=== PATIENT | female | born 1995 | race Caucasian/White ===

== ENCOUNTER 2017-11-11 22:53 | Emergency (ER) | payer OTHER ==
[2017-11-11 22:59] VITALS: BP 130/70; PULSE 92; RESP 18; TEMP 97.9; O2SAT 96
[2017-11-11] MEDS ORDERED: PHENAZOPYRIDINE HCL 200 MG TAB PO ONE (23:02)
[2017-11-11] MEDS ORDERED: NITROFURANTOIN MACROBID 100 MG CAP PO ONE (23:17)
[2017-11-11] MEDS ORDERED: NITROFURANTOIN 100MG PREPACK#2 BTL TAKEHOME ONE (23:17)
--- NOTE | 2017-11-11 23:21 | EDPHY ---
H & P Stated Complaint: UTI LIKE SX FOR 1 DAY Time Seen by Provider: 11/11/17 23:02 HPI/ROS: HPI The patient presents with 2 hr of dysuria, urgency, hesitancy, which feels like her prior urinary tract infections. She thinks she has had a total of 4 or 5 of them. Her symptoms started suddenly. She thinks it is caused by wearing thong underwear. She does not have any abdominal pain, back pain, nausea or vomiting. REVIEW OF SYSTEMS Constitutional: No fever, no chills. Eyes: No discharge. ENT: No sore throat. Cardiovascular: No chest pain, no palpitations. Respiratory: No cough, no shortness of breath. Gastrointestinal: No abdominal pain, no vomiting. Genitourinary: No hematuria. Musculoskeletal: No back pain. Skin: No rashes. Neurological: No headache. PMHx: Frequent urinary tract infections Soc Hx: Housed PHYSICAL General Appearance: Alert, uncomfortable appearing Eyes: Pupils equal and round no pallor or injection ENT, Mouth: Mucous membranes moist Respiratory: There are no retractions, lungs are clear to auscultation Cardiovascular: Regular rate and rhythm Gastrointestinal: Abdomen is soft and non-tender, no masses, bowel sounds normal, no CVA tenderness Neurological: A&O, moves all extremities Skin: Warm and dry, no rashes Musculoskeletal: Neck is supple non tender Extremities: symmetrical, full range of motion Psychiatric: Patient is oriented X 3, there is no agitation Source: Patient Exam Limitations: No limitations - Personal History LMP (Females 10-55): 1-7 Days Ago Current Tetanus/Diphtheria Vaccine: Yes Current Tetanus Diphtheria and Acellular Pertussis (TDAP): Yes - Medical/Surgical History Hx Asthma: Yes Hx Chronic Respiratory Disease: No Hx Diabetes: No Hx Cardiac Disease: No Hx Renal Disease: Yes Hx Cirrhosis: No Hx Alcoholism: No Hx HIV/AIDS: No Hx Splenectomy or Spleen Trauma: No Other PMH: KIDNEY SURGERY, UTI'S, DEPRESSION, ADD - Social History Smoking Status: Light smoker Constitutional: Initial Vital Signs Temperature (C) 36.6 C 11/11/17 22:56 Heart Rate 92 11/11/17 22:56 Respiratory Rate 18 11/11/17 22:56 Blood Pressure 130/70 H 11/11/17 22:56 O2 Sat (%) 96 11/11/17 22:56 O2 Delivery Mode Room Air Allergies/Adverse Reactions: No Known Allergies Allergy (Unverified 11/11/17 22:59) Home Medications: Medication Instructions Recorded Atomoxetine HCl [Strattera] 80 mg PO 11/11/17 Control Pills 11/11/17 Escitalopram Oxalate [Lexapro] 5 mg PO 11/11/17 Nitrofurantoin Monohyd/M-Cryst 100 mg PO BID 5 Days capsule 11/11/17 [Macrobid 100 mg Capsule] Medical Decision Making Differential Diagnosis: 21-year-old female history of frequent UTIs presents with 2 hr of irritative voiding symptoms. On exam, uncomfortable appearing, though normal vital signs, no flank tenderness, no suprapubic tenderness. UA consistent with urinary tract infection. I have reviewed her prior culture results which show multiple colonies. I will start her on Macrobid for presumed uncomplicated cystitis. Urine culture has been sent. She will be discharged home after a dose of Pyridium. Differential diagnosis includes cystitis, pyelonephritis, less likely appendicitis. - Data Points Laboratory Results: 11/11/17 11/11/17 22:50 22:50 Urine Color BRETT Urine Appearance CLEAR Urine pH 7.0 (5.0-7.5) Ur Specific [place] 1.001 L (1.002-1.030) Urine Protein NEGATIVE (NEGATIVE) Urine Ketones NEGATIVE (NEGATIVE) Urine Blood NEGATIVE (NEGATIVE) Urine Nitrate POSITIVE H (NEGATIVE) Urine Bilirubin NEGATIVE (NEGATIVE) Urine Urobilinogen NEGATIVE EU EU (0.2-1.0) Ur Leukocyte Esterase NEGATIVE (NEGATIVE) Urine RBC 1-3 /hpf /hpf (0-3) Urine WBC 1-3 /hpf /hpf (0-3) Ur Epithelial Cells TRACE /lpf /lpf (NONE-1+) Urine Glucose NEGATIVE (NEGATIVE) Urine Test NEGATIVE Medications Given: Discontinued Medications Phenazopyridine HCl (Pyridium) 200 mg PO EDNOW ONE Stop: 11/11/17 23:03 Last Admin: 11/11/17 23:16 Dose: 200 mg Departure - Departure Disposition: Home, Routine, Self-Care Clinical Impression: Urinary tract infection Qualifiers: Urinary tract infection type: acute cystitis Hematuria presence: without hematuria Qualified Code(s): N30.00 - Acute cystitis without hematuria Condition: Good Instructions: Nitrofurantoin Combination (By mouth), Urinary Tract Infection in Women (ED) Additional Instructions: Please return to the emergency department if your worse in any way. Prescriptions: Nitrofurantoin Monohyd/M-Cryst [Macrobid 100 mg Capsule] 100 mg PO BID 5 Days capsule
== END 2017-11-11 23:42 | disposition home or self-care (01) ==
DX: N30.00 Acute cystitis without hematuria (principal); B96.89 Other specified bacterial agents as the cause of diseases classified elsewhere; J45.909 Unspecified asthma, uncomplicated; F17.200 Nicotine dependence, unspecified, uncomplicated

== ENCOUNTER 2018-01-20 21:22 | Emergency (ER) | payer OTHER ==
[2018-01-20 21:35] VITALS: BP 98/68; RESP 18
--- NOTE | 2018-01-20 21:44 | EDPHY ---
H & P Stated Complaint: WANTS TO CHECK INFECTION GONE SO CAN TRAVEL(SEE NOTE) Time Seen by Provider: 01/20/18 21:30 HPI/ROS: HPI CHIEF COMPLAINT: "I want to make sure my urinary tract infection is gone" HISTORY OF PRESENT ILLNESS: This patient is a 22-year-old female, she presents emergency room she states that recently she had a urinary tract infection. She completed a course of antibiotics. She no longer has any symptoms. She denies dysuria, back pain, fever, vomiting or burning when she urinates she states she otherwise feels well. She states she is about to go on spring to the [facility] and wanted to make sure was gone. We discussed options in the emergency room including sending another urinalysis however Given that she has no symptoms and feels well and has no symptoms she has declined a repeat urinalysis which I think is completely reasonable. I do recommend she drink lots of fluids stay well-hydrated while traveling. Return precautions discussed with her. Past Medical History: Recurring urinary tract infection. Past Surgical History: Denies recent surgery Social History: Denies drugs alcohol tobacco. Family History: Noncontributory ROS REVIEW OF SYSTEMS: A comprehensive 10 point review of systems is otherwise negative aside from elements mentioned in the history of present illness. Exam Constitutional appears well nontoxic no acute distress, triage nursing summary reviewed, vital signs reviewed, awake/alert. Eyes normal conjunctivae and sclera, EOMI, PERRLA. HENT normal inspection, atraumatic, moist mucus membranes, no epistaxis, neck supple/ no meningismus, no raccoon eyes. Respiratory clear to auscultation bilaterally, normal breath sounds, no respiratory distress, no wheezing. Cardiovascular rate normal, regular rhythm, no murmur, no edema, distal pulses normal. Gastrointestinal soft, non-tender, no rebound, no guarding, normal bowel sounds, no distension, no pulsatile mass. Genitourinary no CVA tenderness. Musculoskeletal no midline vertebral tenderness, full range of motion, no calf swelling, no tenderness of extremities, no meningismus, good pulses, neurovascularly intact. Skin pink, warm, & dry, no rash, skin atraumatic. Neurologic awake, alert and oriented x 3, AAOx3, moves all 4 extremities equally, motor intact, sensory intact, CN II-XII intact, normal cerebellar, normal vision, normal speech. Psychiatric normal mood/affect. Heme/Lymph/Immune no lymphadenopathy. Differential Diagnosis: Includes but is not limited to in a particular order urinary tract infection that was treated completely, general wellness exam Medical Decision Making: Long discussion with the patient she declined repeat urinalysis. She has no symptoms and appears well. Recommend drinking lots of fluids stay well-hydrated when she travels. Return precautions discussed about recurrent urinary tract infection. I think it is reasonable to not perform another urinalysis given that she has no symptoms and complete a course of antibiotics. Source: Patient - Personal History LMP (Females 10-55): 22-28 Days Ago Current Tetanus/Diphtheria Vaccine: Yes Current Tetanus Diphtheria and Acellular Pertussis (TDAP): Yes - Medical/Surgical History Hx Asthma: Yes Hx Chronic Respiratory Disease: No Hx Diabetes: No Hx Cardiac Disease: No Hx Renal Disease: Yes Hx Cirrhosis: No Hx Alcoholism: No Hx HIV/AIDS: No Hx Splenectomy or Spleen Trauma: No Other PMH: KIDNEY SURGERY, UTI'S, DEPRESSION, ADD - Social History Smoking Status: Light smoker Constitutional: Initial Vital Signs Temperature (C) 36.9 C 01/20/18 21:28 Heart Rate 91 01/20/18 21:28 Respiratory Rate 18 01/20/18 21:28 Blood Pressure 98/68 L 01/20/18 21:28 O2 Sat (%) 98 01/20/18 21:28 O2 Delivery Mode Room Air Allergies/Adverse Reactions: No Known Allergies Allergy (Unverified 01/20/18 21:31) Home Medications: Medication Instructions Recorded Cephalexin [Keflex (*)] 500 mg PO QID 01/20/18 Departure - Departure Disposition: Home, Routine, Self-Care Clinical Impression: Well adult exam Condition: Good Instructions: Normal Exam (ED) Additional Instructions: 1. Make sure to drink lots of fluids. 2. Return emergency room if you have any worsening symptoms includes burning when you urinate, fever, vomiting. Referrals: NONE *PRIMARY CARE P,. [Primary Care Provider] - As per Instructions
[2018-01-20 22:12] VITALS: PULSE 72; TEMP 97.9; O2SAT 95
== END 2018-01-20 22:13 | disposition home or self-care (01) ==
DX: Z00.00 Encounter for general adult medical examination without abnormal findings (principal); J45.909 Unspecified asthma, uncomplicated; F17.200 Nicotine dependence, unspecified, uncomplicated